=== PATIENT | female | born 1965 | race Caucasian/White ===

== ENCOUNTER 2019-06-05 14:12 | Outpatient (CLI) | payer BC, SELFPAY ==
--- NOTE | 2019-06-05 14:23 | XR_ITS ---
WS: [id number] PROCEDURE: XR chest 2V* [id number] CLINICAL INFORMATION: ACUTE LOWER RESPIRATORY TRACT INFECTION COMPARISON: August 30, 2018 FINDINGS: Heart: Normal cardiac silhouette. Lungs: Chronic emphysematous changes. No acute pulmonary infiltrates. No focal pneumonia. Bones: Mild thoracic curve convex right. XR/XR chest 2V* [id number] IMPRESSION: No acute chest findings.
== END 2019-06-05 14:13 | disposition home or self-care (01) ==
LOC: RADWPI 14:16
PROVIDERS: Family Provider Family Medicine; PCP Family Medicine; Visit Provider Family Medicine
DX: J22 Unspecified acute lower respiratory infection (principal)
CPT/HCPCS: 71046

== ENCOUNTER 2019-10-05 11:33 | Outpatient (RCR) | payer BC, SELFPAY | END 2019-10-07 23:59 | disposition home or self-care (01) | LOC: SPT 11:33 | PROVIDERS: PCP Family Medicine; Visit Provider Family Medicine | DX: R42 Dizziness and giddiness (principal) | CPT/HCPCS: 95992; 97162 ==

== ENCOUNTER 2019-11-07 06:00 | Outpatient (RCR) | payer BC, SELFPAY | END 2019-12-07 23:59 | disposition home or self-care (01) | LOC: SPT 06:00 | PROVIDERS: PCP Family Medicine; Visit Provider Family Medicine | DX: R42 Dizziness and giddiness (principal); H81.11 Benign paroxysmal vertigo, right ear | CPT/HCPCS: 95992 ==

== ENCOUNTER 2019-11-22 11:39 | Outpatient (CLI) | payer BC, SELFPAY ==
--- NOTE | 2019-11-22 11:47 | MM_ITS ---
WS: [id number] BILATERAL DIGITAL SCREENING MAMMOGRAM WITH CAD CLINICAL INFORMATION: SCREENING HISTORY: Screening mammogram. No current complaints. COMPARISON: 3 [id number] TECHNIQUE: Bilateral CC and MLO. FINDINGS: The breast are composed of extremely dense tissue, which can limit the detection of small underlying mass lesions. No suspicious focal mass, asymmetry, calcifications, or architectural distortion. No ev idence of malignancy. Lucent centered calcification left breast. MM/[place] [id number] IMPRESSION: BI-RADS: 2-Benign FOLLOW UP: 1 Year Follow-up Recommend return to annual screening mammography.
== END 2019-11-22 11:40 | disposition home or self-care (01) ==
PROVIDERS: PCP Family Medicine; Visit Provider Family Medicine
DX: Z12.31 Encounter for screening mammogram for malignant neoplasm of breast (principal)
CPT/HCPCS: 77067

== ENCOUNTER 2020-01-16 08:49 | Outpatient (CLI) | payer BC, SELFPAY ==
--- NOTE | 2020-01-16 08:52 | MM_ITS ---
WS: [id number] DIAGNOSTIC LEFT DIGITAL MAMMOGRAM WITH CAD LEFT breast ultrasound, limited HISTORY: LT BREAST LUMP OR MASS COMPARISON: 11/22/2019 and 07/14/2018 and 02/08/2017 Technique: CC, MLO and ML views. Spot compression LEFT MLO and ML. Breast composition: The breasts are heterogeneously dense, which may obscure small masses. Triangula r palpable markers are placed over the upper outer quadrant of the LEFT breast. There is dense fibrog landular tissue but similar to prior studies. Stable nodules and asymmetries over multiple prior year s. No distortion. LEFT breast ultrasound, limited. There are multiple masses in the lateral LEFT breast from 12-6 o'clock. Majority of these are cystic or complex cystic. The largest nodule is round at 3:00, 2 cm from the nipple. Low level echoes throug hout but there is also a cystic component. This nodule measures 1.0 x 0.7 x 0.9 cm without increased vascularity. May be a hemorrhagic cyst. At 4:00 there is a cystic nodule with low-level echoes slight ly taller than wide. This is at 3 cm from the nipple measuring 0.9 x 0.6 x 0.8 cm. No increased vascu larity. There are multiple additional small nodules some of these are cysts and complex cystic. Hyper echoic nodule measures 3 mm at 12:00, 2 cm from the nipple. MM/[place] [id number] IMPRESSION: BI-RADS: 4-Suspicious Finding-Biopsy Should Be Considered FOLLOW UP: Biopsy Recommended There are 2 complex cystic masses in the LEFT breast. Favor these are probably both benign cysts with hemorrhage or increased protein content. Recommend ultra sound-guided aspiration and/or biopsy. Recommend targeting the largest nodule a t 3:00 in the complex cystic nodule at 4:00. Notified Cristhian Howard MD at 01/16/2020 10:19 AM.
== END 2020-01-16 08:50 | disposition home or self-care (01) ==
LOC: RADSHAW 08:49
PROVIDERS: PCP Family Medicine; Visit Provider Family Medicine
DX: N63.23 Unspecified lump in the left breast, lower outer quadrant (principal)
CPT/HCPCS: 76642; 77065

== ENCOUNTER 2020-02-05 12:02 | Outpatient (CLI) | payer BC, SELFPAY ==
--- NOTE | 2020-02-05 12:09 | US_ITS ---
NOTE: Report was unsigned for reason: Order was edited. Original Signature date and time was: 02/13/20 0837 WS: [id number] ULTRASOUND-GUIDED LEFT BREAST cyst aspiration. HISTORY: LEFT BREAST LUMP OR MASS COMPARISON: 01/16/2020 Procedure, risks and complications are explained to the patient. Medications are reviewed. Consent is obtained. Cysts in the LEFT breast are localized with ultrasound. Similar-appearing cysts localized to the 3 and 4:00 axis. Skin is cleansed with ChloraPrep and anesthetized with 1% buffered lidocaine. Cysts are aspirated with 18-gauge needles. Aspirates placed in a cytology tube. Breast tissue marker (Bard ultrasound enhanced ribbon): None. Patient left the radiology suite with no complications. Patient is instructed to return to [facility] or call with any concerns. [facility] US/[place] [id number] IMPRESSION: 1. Uncomplicated LEFT breast cyst aspiration. PATHOLOGY: Galactorrhea with associated fibrocystic changes. No evidence for di sc blastic or neoplastic process. RECOMMENDATION: Return to annual screening mammography.
== END 2020-02-05 12:03 | disposition home or self-care (01) ==
LOC: RAD 12:05
PROVIDERS: PCP Family Medicine; Visit Provider Family Medicine
DX: N63.23 Unspecified lump in the left breast, lower outer quadrant
CPT/HCPCS: 19000; 19001; 19083; 76942; 88112; 88305

== ENCOUNTER → 2022-05-25 17:34 | Outpatient (BNVA) | payer BC, SELFPAY | PROVIDERS: PCP Family Medicine; Visit Provider Family Medicine | DX: N76.0 Acute vaginitis (principal) | CPT/HCPCS: 87070; 87205 ==

== ENCOUNTER → 2022-05-26 09:19 | Outpatient (BNVA) | payer BC, SELFPAY | PROVIDERS: PCP Family Medicine; Visit Provider Family Medicine | DX: R30.0 Dysuria (principal) | CPT/HCPCS: 81000; 87086 ==

== ENCOUNTER 2022-07-28 15:14 | Outpatient (CLI) | payer BC, SELFPAY ==
--- NOTE | 2022-07-28 15:28 | XR_ITS ---
WS: [id number] EXAMINATION: XR foot RT min 3V* [id number] REASON FOR EXAM: right foot pain after a fall COMPARISON: None available. ORDER DATE: 07/28/2022 3:28 PM TECHNIQUE: 3 views of the right foot were obtained. X-RAY FINDINGS: There are no fractures or dislocations. No focal abnormal soft tissue swelling. Joint spaces are pres erved. XR/XR foot RT min 3V* [id number] IMPRESSION: No fractures or dislocations of the right foot.
== END 2022-07-28 15:15 | disposition home or self-care (01) ==
PROVIDERS: PCP Family Medicine; Visit Provider Clinical Nurse Specialist Adult Health
DX: S99.921A Unspecified injury of right foot, initial encounter (principal); W19.XXXA Unspecified fall, initial encounter
CPT/HCPCS: 73630

== ENCOUNTER 2023-04-13 14:43 | Outpatient (CLI) | payer BC, SELFPAY ==
--- NOTE | 2023-04-13 14:49 | MM_ITS ---
WS: [id number] BILATERAL 3D TOMOSYNTHESIS DIGITAL SCREENING MAMMOGRAPHY WITH CAD CLINICAL INFORMATION: SCREENING HISTORY: Screening mammogram. No current complaints. COMPARISON: 2020 TECHNIQUE: Bilateral CC and MLO views. FINDINGS: The breasts are composed of heterogeneous fibroglandular density tissue, which can limit the detectio n of small underlying mass lesions. No suspicious mass, asymmetry, calcifications, or architectural d istortion. No evidence of malignancy. Few incidental punctate calcifications. Vascular calcification. IMPRESSION: MM/[place] [id number] BI-RADS: 2-Benign FOLLOW UP: 1 Year Follow-up Recommend return to annual screening mammography.
== END 2023-04-13 14:44 | disposition home or self-care (01) ==
LOC: RAD 14:43
PROVIDERS: PCP Family Medicine; Visit Provider Family Medicine
DX: Z12.31 Encounter for screening mammogram for malignant neoplasm of breast (principal)
CPT/HCPCS: 77063; 77067

== ENCOUNTER → 2024-01-23 08:03 | Outpatient (BNVA) | payer BC, SELFPAY | PROVIDERS: PCP Family Medicine; Visit Provider Family Medicine | DX: Z13.220 Encounter for screening for lipoid disorders; Z51.81 Encounter for therapeutic drug level monitoring | CPT/HCPCS: 80053; 80061; 83036; 85025 ==

== ENCOUNTER 2024-06-14 09:23 | Outpatient (CLI) | payer BC, SELFPAY ==
--- NOTE | 2024-06-14 09:24 | MM_ITS ---
WS: [id number] Bilateral screening 3D tomosynthesis digital mammogram, 06/14/2024 9:25 AM Clinical Data: SCREENING Comparison: 04/13/2023, 01/16/2020, 11/22/2019, 07/14/2018, 02/08/2017, 01/19/2017, 11/22/2014, 07/29/2010, 01/29/2009, 07/13/2007, 05/08/2007. Findings: No spiculated masses or clustered calcifications are seen. There are no secondary signs of carcinoma. MM/MM [facility] tomosynthesis [id number] Impression: Negative bilateral mammogram unchanged. Recommend annual screening mammograms. BIRADS: 1 - Negative FOLLOW UP: 1 Year Follow-up DENSITY: The breasts are heterogeneously dense, which may obscure small masses. The CAD pattern checker was used
== END 2024-06-14 09:24 | disposition home or self-care (01) ==
PROVIDERS: PCP Family Medicine; Visit Provider Family Medicine
DX: Z12.31 Encounter for screening mammogram for malignant neoplasm of breast (principal); R92.333 Mammographic heterogeneous density, bilateral breasts
CPT/HCPCS: 77063; 77067

== ENCOUNTER → 2025-02-07 13:20 | Outpatient (BNVA) | payer BC, SELFPAY | PROVIDERS: PCP Family Medicine; Visit Provider Family Medicine | DX: Z51.81 Encounter for therapeutic drug level monitoring (principal); Z00.00 Encounter for general adult medical examination without abnormal findings; Z13.1 Encounter for screening for diabetes mellitus; Z13.6 Encounter for screening for cardiovascular disorders | CPT/HCPCS: 80053; 80061; 83036; 85025 ==

== ENCOUNTER → 2025-02-21 13:13 | Outpatient (BNVA) | payer BC, SELFPAY | PROVIDERS: PCP Family Medicine; Visit Provider Family Medicine | DX: R30.0 Dysuria (principal); N39.0 Urinary tract infection, site not specified | CPT/HCPCS: 81000; 87086 ==